=== PATIENT | male | born 1970 | race Two or more races ===

== ENCOUNTER → 2024-11-24 | Outpatient (CLI) | payer OTHER, SELFPAY ==
--- NOTE | 2024-11-24 09:00 | XR_ITS ---
Examination: MRI left elbow, without contrast Date and time of exam: November 24, 2024 10:00 AM INDICATIONS: Injury to the elbow after falling off a ladder 5 years ago with increasing elbow pain Technique: Multiple axial sagittal and coronal images of the left elbow have been obtained with the Siemens high-resolution 1.5 [facility] MRI scanner. Images obtained include T2-weighted fat-suppressed sagittal sections, TR 3500, TE 46, T2 weighted coronal fat suppressed images, TR 3050, TE 84, T2-weighted transverse fat suppressed images, TR 3260, TE 63, proton density transverse images, TR 4720 TE 46, and T1 weighted coronal images, TR 560, TE 13. Findings: Adequate marrow signal distal humerus proximal radius proximal ulna No occult fracture bone contusion or marrow edema No avascular necrosis Medial lateral ligamentous complexes intact No ossified joint bodies Triceps tendon intact IMPRESSION: No occult fracture, bone contusion, marrow edema or avascular necrosis No ossified joint bodies
--- NOTE | 2024-11-24 09:45 | XR_ITS ---
Examination: MRI left humerus, without contrast Date and time of exam: April 24, 2025 at 1038 hours INDICATIONS: Patient fell off a ladder 5 years ago with injury to the shoulder, persistent shoulder pain Technique: Multiple axial sagittal and coronal images of the left humerus have been obtained with the Siemens high-resolution 1.5 [place] MRI scanner. Images obtained include T2-weighted fat-suppressed sagittal sections, TR 3500, TE 46, T2 weighted coronal fat suppressed images, TR 3050, TE 84, T2-weighted transverse fat suppressed images, TR 3260, TE 63, proton density transverse images, TR 4720 TE 46, and T1 weighted coronal images, TR 560, TE 13. Findings: Rotator cuff appears grossly intact on this non shoulder MRI study The humeral head and neck appear intact The images do not include the distal humerus No hemorrhage in the muscle Artifacts lower lateral upper arm on the axial images IMPRESSION: No occult fracture bone contusion or marrow edema Rotator cuff appears intact.
== END | disposition home or self-care (01) ==
LOC: SMRI 08:51
PROVIDERS: PCP Family Medicine; Referring Provider Family Medicine; Visit Provider Family Medicine
DX: S40.022A Contusion of left upper arm, initial encounter (principal); S49.92XA Unspecified injury of left shoulder and upper arm, initial encounter; W11.XXXA Fall on and from ladder, initial encounter
CPT/HCPCS: 73218; 73221